=== PATIENT | female | born 1935 | race Caucasian/White ===

== ENCOUNTER 2017-03-01 17:01 | Inpatient (IN) | payer OTHER ==
[~2017-03-01] VITALS: Ht 165.1 cm; Wt 106.0 kg
[2017-03-01 18:05] LABS: HEMATOCRIT 40.3 % (36.0-46.0); MCH 28.7 PG (29.0-34.0); MCHC 34.2 G/DL (30.0-36.0); MCV 83.8 FL (83-99); MEAN PLAT.VOLUME 8.8 uM^3 (9.5-12.4); PLATELET COUNT 225 K/uL (156-360); RBC DIS.WIDTH-CV 13.9 % (11.8-14.6); RBC DIS.WIDTH-SD 42.6 % (39-53); RED BLOOD COUNT 4.81 M/uL (3.80-5.20); WHITE BLOOD COUNT 14.1 K/uL (4.1-10.2)
[2017-03-01 18:19] LABS: CHLORIDE 98 mEq/L (99-109); POTASSIUM 3.9 mEq/L (3.7-5.4); SODIUM 134 mEq/L (136-147)
[2017-03-01 18:21] LABS: GLUCOSE 134 mg/dL (70-99)
[2017-03-01 18:22] LABS: ANION GAP 14 MEQ/L (2-14)
[2017-03-01 18:23] LABS: TOTAL BILIRUBIN 0.6 mg/dL (0.0-1.0)
[2017-03-01 18:25] LABS: ALKALINE PHOSPHATASE 72 IU/L (3-129); D-DIMER ELISA > 4.00 mg/L FEU (< 0.57); GFR ESTIMATE (CALCULATED) 51 mL/min/
[2017-03-01 18:26] LABS: TROP-I INTERPRETATION INDETERMINATE; TROPONIN-I 0.58 ng/mL (0.0-0.30); UREA NITROGEN (BUN) 19 mg/dL (9-23)
[2017-03-01 20:21] LABS: INTER. NORMALIZED RATIO 1.1; PROTHROMBIN TIME 10.7 (9.2-11.2)
[2017-03-01] MEDS ORDERED: ENDOCET 5-3251 EACH PO (20:36)
[2017-03-01] MEDS ORDERED: GABAPENTIN400 MG PO (20:37)
[2017-03-01] MEDS ORDERED: LOSARTAN-HCTZ1 EAC1 PO (20:37)
[2017-03-01] MEDS ORDERED: VITAMIN B-12 51 EACH SL (20:38)
[2017-03-01] MEDS ORDERED: FISH OIL 1,0001 EAC7 PO (20:38)
[2017-03-01] MEDS ORDERED: ASPIRIN81 M2 PO (20:39)
[2017-03-01] MEDS ORDERED: VITAMIN D31000 UNIT PO (20:39)
[2017-03-01 22:19] VITALS: BP 131/73
[2017-03-01 22:30] VITALS: BP 131/73
[2017-03-02] VITALS (7 sets, daily range): BP systolic 98–144; BP diastolic 54–83
[2017-03-02 02:23] LABS: TROP-I INTERPRETATION INDETERMINATE; TROPONIN-I 0.46 ng/mL (0.0-0.30)
[2017-03-02 07:00] LABS: Estimated Average Glucose 111 mg/dL (70-123); HEMOGLOBIN A1c (GLYCOHEMOGLOB) 5.5 % HGB (Below 5.7)
[2017-03-02 07:12] LABS: HEMATOCRIT 37.9 % (36.0-46.0); MCH 28.7 PG (29.0-34.0); MCHC 33.8 G/DL (30.0-36.0); MEAN PLAT.VOLUME 8.9 uM^3 (9.5-12.4); NRBC (%) 0.2 /100 WBC (0-0); PLATELET COUNT 211 K/uL (156-360); RBC DIS.WIDTH-SD 43.2 % (39-53); RED BLOOD COUNT 4.46 M/uL (3.80-5.20); WHITE BLOOD COUNT 12.1 K/uL (4.1-10.2)
[2017-03-02 07:28] LABS: INTER. NORMALIZED RATIO 1.1; PROTHROMBIN TIME 11.2 (9.2-11.2)
[2017-03-02 07:41] LABS: ALKALINE PHOSPHATASE 62 IU/L (3-129); ANION GAP 13 MEQ/L (2-14); CHLORIDE 100 MEQ/L (99-109); GFR ESTIMATE (CALCULATED) > 59 mL/min/; GLUCOSE 99 mg/dL (70-99); POTASSIUM 3.3 MEQ/L (3.7-5.4); SAMPLE HEMOLYSIS CHECK 0; SAMPLE ICTERIC CHECK 0; SAMPLE LIPEMIA CHECK 0; SODIUM 136 MEQ/L (136-147); TOTAL BILIRUBIN 0.7 MG/DL (0.0-1.0); UREA NITROGEN (BUN) 19 mg/dL (9-23)
[2017-03-02 07:42] LABS: TROP-I INTERPRETATION INDETERMINATE; TROPONIN-I 0.33 ng/mL (0.0-0.30)
[2017-03-02 08:46] LABS: PTT 78.8 (25-32)
[2017-03-02 18:44] LABS: TROP-I INTERPRETATION NEGATIVE; TROPONIN-I 0.18 ng/mL (0.0-0.30)
[2017-03-02 22:03] LABS: ADD MIUA? YES; BILIRUBIN NEGATIVE; BLOOD NEGATIVE; COLOR YELLOW ((YELLOW)); GLUCOSE (STRIP) NEGATIVE; KETONES NEGATIVE; LEUKOCYTES TRACE; NITRITE NEGATIVE; PROTEIN (STRIP) NEGATIVE; SPECIFIC GRAVITY 1.019 (1.000-1.030); UROBILINOGEN 0.2 MG/DL (0.2-1.0)
[2017-03-02 22:13] LABS: BACTERIA RARE /HPF; EPITHELIAL CELLS RARE /HPF; MUCUS TRACE /LPF; RED BLOOD CELLS 15-20 /HPF (0-5); WHITE BLOOD CELLS 0-5 /HPF (0-5)
[2017-03-03 05:26] VITALS: BP 112/57
[2017-03-03 07:59] VITALS: BP 140/63
[2017-03-03 09:04] LABS: HEMATOCRIT 37.2 % (36.0-46.0); MCH 29.2 PG (29.0-34.0); MCHC 34.4 G/DL (30.0-36.0); MCV 84.7 FL (83-99); MEAN PLAT.VOLUME 9.2 uM^3 (9.5-12.4); PLATELET COUNT 224 K/uL (156-360); RBC DIS.WIDTH-CV 14.2 % (11.8-14.6); RBC DIS.WIDTH-SD 43.8 % (39-53); RED BLOOD COUNT 4.39 M/uL (3.80-5.20); WHITE BLOOD COUNT 9.8 K/uL (4.1-10.2)
[2017-03-03 09:31] LABS: INTER. NORMALIZED RATIO 1.1; PROTHROMBIN TIME 11.4 (9.2-11.2)
[2017-03-03 09:47] LABS: PTT 57.8 (25-32)
[2017-03-03 10:26] LABS: ANION GAP 13 MEQ/L (2-14); CHLORIDE 98 MEQ/L (99-109); GFR ESTIMATE (CALCULATED) > 59 mL/min/; GLUCOSE 102 mg/dL (70-99); POTASSIUM 3.5 MEQ/L (3.7-5.4); SAMPLE HEMOLYSIS CHECK 0; SAMPLE ICTERIC CHECK 0; SAMPLE LIPEMIA CHECK 0; SODIUM 135 MEQ/L (136-147); UREA NITROGEN (BUN) 16 mg/dL (9-23)
[2017-03-03 17:48] VITALS: BP 145/95
[2017-03-03 19:35] VITALS: BP 148/67
[2017-03-03 23:00] VITALS: BP 120/57; BP 120/59
[2017-03-04 03:15] VITALS: BP 115/58
[2017-03-04 07:26] LABS: MCH 29.4 PG (29.0-34.0); MCHC 34.9 G/DL (30.0-36.0); MCV 84.4 FL (83-99); MEAN PLAT.VOLUME 8.8 uM^3 (9.5-12.4); PLATELET COUNT 234 K/uL (156-360); RBC DIS.WIDTH-CV 14.2 % (11.8-14.6); RBC DIS.WIDTH-SD 43.4 % (39-53); RED BLOOD COUNT 4.62 M/uL (3.80-5.20); WHITE BLOOD COUNT 9.5 K/uL (4.1-10.2)
[2017-03-04 08:25] LABS: INTER. NORMALIZED RATIO 1.2; PROTHROMBIN TIME 12.4 (9.2-11.2)
[2017-03-04 08:30] VITALS: BP 127/63
[2017-03-04 08:40] LABS: ANION GAP 11 MEQ/L (2-14); CHLORIDE 99 MEQ/L (99-109); GFR ESTIMATE (CALCULATED) > 59 mL/min/; GLUCOSE 101 mg/dL (70-99); POTASSIUM 3.9 MEQ/L (3.7-5.4); SAMPLE HEMOLYSIS CHECK 0; SAMPLE ICTERIC CHECK 0; SAMPLE LIPEMIA CHECK 0; SODIUM 135 MEQ/L (136-147); UREA NITROGEN (BUN) 15 mg/dL (9-23)
[2017-03-04 11:24] VITALS: BP 103/64
[2017-03-04 16:00] VITALS: BP 134/58
[2017-03-04 19:15] VITALS: BP 140/67
[2017-03-04 22:30] VITALS: BP 116/53
[2017-03-05 04:30] VITALS: BP 140/85
[2017-03-05 06:04] LABS: HEMATOCRIT 37.2 % (36.0-46.0); MCH 28.1 PG (29.0-34.0); MCHC 33.3 G/DL (30.0-36.0); MCV 84.2 FL (83-99); MEAN PLAT.VOLUME 9.1 uM^3 (9.5-12.4); PLATELET COUNT 242 K/uL (156-360); RBC DIS.WIDTH-CV 14.2 % (11.8-14.6); RBC DIS.WIDTH-SD 43.4 % (39-53); RED BLOOD COUNT 4.42 M/uL (3.80-5.20); WHITE BLOOD COUNT 8.4 K/uL (4.1-10.2)
[2017-03-05 06:14] LABS: INTER. NORMALIZED RATIO 1.4; PROTHROMBIN TIME 14.7 (9.2-11.2)
[2017-03-05 06:28] LABS: ANION GAP 12 MEQ/L (2-14); CHLORIDE 102 MEQ/L (99-109); GFR ESTIMATE (CALCULATED) > 59 mL/min/; GLUCOSE 89 mg/dL (70-99); POTASSIUM 3.9 MEQ/L (3.7-5.4); SAMPLE HEMOLYSIS CHECK 0; SAMPLE ICTERIC CHECK 0; SAMPLE LIPEMIA CHECK 0; SODIUM 136 MEQ/L (136-147); UREA NITROGEN (BUN) 15 mg/dL (9-23)
[2017-03-05 08:02] VITALS: BP 115/66
[2017-03-05 10:46] VITALS: BP 138/63
[2017-03-05 15:17] VITALS: BP 111/58
[2017-03-05 15:34] LABS: INTER. NORMALIZED RATIO 1.5; PROTHROMBIN TIME 15.4 (9.2-11.2); PTT 64.7 (25-32)
[2017-03-05 19:15] VITALS: BP 123/59
[2017-03-05 23:00] VITALS: BP 128/62
[2017-03-06 03:15] VITALS: BP 149/63
[2017-03-06 06:20] LABS: HEMATOCRIT 34.8 % (36.0-46.0); MCH 29.4 PG (29.0-34.0); MCHC 34.8 G/DL (30.0-36.0); MCV 84.7 FL (83-99); PLATELET COUNT 249 K/uL (156-360); RBC DIS.WIDTH-CV 14.6 % (11.8-14.6); RBC DIS.WIDTH-SD 44.6 % (39-53); RED BLOOD COUNT 4.11 M/uL (3.80-5.20); WHITE BLOOD COUNT 7.7 K/uL (4.1-10.2)
[2017-03-06 06:35] LABS: INTER. NORMALIZED RATIO 1.7; PROTHROMBIN TIME 17.4 (9.2-11.2); PTT 65.3 (25-32)
[2017-03-06 07:15] VITALS: BP 124/58
[2017-03-06 07:59] LABS: ANION GAP 12 MEQ/L (2-14); CHLORIDE 103 MEQ/L (99-109); GFR ESTIMATE (CALCULATED) > 59 mL/min/; GLUCOSE 92 mg/dL (70-99); POTASSIUM 4.2 MEQ/L (3.7-5.4); SAMPLE HEMOLYSIS CHECK 0; SAMPLE ICTERIC CHECK 0; SAMPLE LIPEMIA CHECK 0; SODIUM 136 MEQ/L (136-147); UREA NITROGEN (BUN) 19 mg/dL (9-23)
[2017-03-06 11:00] VITALS: BP 111/61
[2017-03-06] MEDS ORDERED: COUMADIN1 MG PO (13:21)
[2017-03-06] MEDS ORDERED: LOVENOX100 MG/1 M SC (13:26)
[2017-03-06 15:00] VITALS: BP 111/57
[2017-03-08 20:20] LABS: APCR to FVL REFLEX Has been added (()); DRVVT Mixing Study Interp Not Indicated (()); PROTEIN C FUNCTIONAL ACTIVITY+ 155 % (70-180); PTT-LA 149 sec (<=40); Protein S, Free 93 % normal (50-147); Thrombosis Consult Level Limited (()); dRVVT Screen 35 sec (<=45)
[2017-03-10 21:36] LABS: ANTITHROMBIN III ACTIVITY+ 105 % activi (80-120)
== END 2017-03-06 17:12 | disposition home or self-care (01) | DRG 176 ==
LOC: EME 17:01 → 4EAST 19:45 → EDOF 19:45 → 4EAST 21:21
PROVIDERS: Emergency Medicine; Internal Medicine
DX: I26.99 Other pulmonary embolism without acute cor pulmonale (principal); I82.411 Acute embolism and thrombosis of right femoral vein; I82.431 Acute embolism and thrombosis of right popliteal vein; I82.421 Acute embolism and thrombosis of right iliac vein; I82.441 Acute embolism and thrombosis of right tibial vein; I82.492 Acute embolism and thrombosis of other specified deep vein of left lower extremity; I82.403 Acute embolism and thrombosis of unspecified deep veins of lower extremity, bilateral; I24.8 Other forms of acute ischemic heart disease; E87.1 Hypo-osmolality and hyponatremia; G89.29 Other chronic pain; I11.9 Hypertensive heart disease without heart failure; F41.9 Anxiety disorder, unspecified; M19.90 Unspecified osteoarthritis, unspecified site; Z96.651 Presence of right artificial knee joint; M71.22 Synovial cyst of popliteal space [Baker], left knee; F32.9 Major depressive disorder, single episode, unspecified; E78.5 Hyperlipidemia, unspecified; R09.02 Hypoxemia; M48.00 Spinal stenosis, site unspecified; Z86.711 Personal history of pulmonary embolism; Z86.718 Personal history of other venous thrombosis and embolism; Z87.442 Personal history of urinary calculi; Z90.710 Acquired absence of both cervix and uterus
CPT/HCPCS: 71010; 71275; 74177; 80048; 80053; 81003; 81240 90; 83036; 83090 90; 83605; 83880; 84484; 85027; 85240 90; 85300 90; 85303 90; 85305 90; 85306 90; 85307 90; 85379; 85610; 85613 90; 85730; 85730 90; 86146 90; 86147 90; 87086; 93005; 93306; 93970; 94799; 99281; 99285; J1650